=== PATIENT | female | born 1960 | race Caucasian/White ===

== ENCOUNTER 2018-11-18 18:49 | Inpatient (IN) | payer BC ==
[~2018-11-18] VITALS: Ht 170.2 cm; Wt 92.1 kg
[2018-11-18 19:07] VITALS: BP_SYST 152
--- NOTE | 2018-11-18 19:15 | NUR ---
Patient to ER bed 3 to gown for evaluation. Side rails up.
--- NOTE | 2018-11-18 19:20 | NUR ---
Pt C/O of headache x 1 day constant pain, blurred vision and photosensitivity. Pt states she took 81mg of ASA and hydrocodone with no relief. Pt denies any N/V, chest pain, SOB or any other symptoms at this time. Will continue to monitor.
[2018-11-18] MEDS: NORMAL SALINE 5 ML DISP.SYRIN IVF SCH ×2 (19:45→22:27)
--- NOTE | 2018-11-18 19:45 | NUR ---
ER Dr. Cleveland at bedside examining patient.
--- NOTE | 2018-11-18 19:54 | NUR ---
Patient transported to radiology via wheelchair, accompanied by rad staff.
--- NOTE | 2018-11-18 19:58 | NUR ---
Patient returned in stable condition
[2018-11-18] MEDS ORDERED: NACL 0.9% 1,000 ML IV ONE (20:01)
[2018-11-18 20:12] LABS: BASOPHILS % (AUTO) 0.4 % (0.0-2.0); EOSINOPHILS # (AUTO) 0.1 K/uL (0.0-0.4); EOSINOPHILS % (AUTO) 1.7 % (0.0-4.0); HEMATOCRIT 43.3 % (36-48); HEMOGLOBIN 14.4 g/dL (12.0-16.0); LYMPHOCYTES # (AUTO) 1.9 K/uL (1.0-5.5); LYMPHOCYTES % (AUTO) 35.7 % (20.5-51.5); MEAN CORPUSCULAR HEMOGLOBIN 31 pg (27-31); MEAN CORPUSCULAR HGB CONC 33 % (32-36); MEAN CORPUSCULAR VOLUME 92 fL (79.0-98.0); MONOCYTES # (AUTO) 0.5 K/uL (0.0-1.0); MONOCYTES % (AUTO) 9.7 % (1.7-9.3); NEUTROPHILS # (AUTO) 2.8 K/uL (1.8-7.7); NEUTROPHILS % (AUTO) 52.5 % (40.0-70.0); PLATELET COUNT (AUTO) 234 K/uL (130-430); RED BLOOD CELL COUNT(AUTO) 4.72 MIL/uL (4.2-6.2); RED CELL DISTRIBUTION WIDTH 13.8 % (9.0-15.0); WHITE BLOOD COUNT (AUTO) 5.4 K/uL (4.8-10.8)
[2018-11-18] MEDS ORDERED: ONDANSETRON HCL 4 MG/2 ML VIAL IVP ONE ×2 (20:15→23:15)
[2018-11-18] MEDS ORDERED: KETOROLAC TROMETHAMINE 15 MG VIAL IVP ONE (20:15)
--- NOTE | 2018-11-18 20:23 | NUR ---
Medicated per MD orders. IVF infusing with no s/s of infiltration at this time. Will cont to monitor
[2018-11-18 20:26] LABS: ANION GAP 9 (5-15); CALCIUM 10.1 mg/dL (8.4-11.0); CHLORIDE 105 mmol/L (98-107); CREATININE 0.82 mg/dL (0.55-1.30); GFR AFRICAN AMERICAN 93 mL/min (>90); GLUCOSE 105 mg/dL (70-99); POTASSIUM 3.9 mmol/L (3.5-5.1); SODIUM SERUM 140 mmol/L (136-145); UREA NITROGEN, BLOOD 18 mg/dL (8-21)
[2018-11-18 20:34] LABS: ALANINE AMINOTRANSFERASE 60 U/L (12-78); ALBUMIN 3.8 g/dL (3.4-4.8); ASPARTATE AMINOTRANSFERASE 26 U/L (10-37); TOTAL BILIRUBIN 0.3 mg/dL (0.0-1.0)
[2018-11-18 20:54] LABS: BILIRUBIN,URINE NEGATIVE (NEGATIVE); BLOOD, URINE 1+ (NEGATIVE); CLARITY/URINE CLEAR (CLEAR); COLOR,URINE YELLOW (YELLOW); GLUCOSE,URINE NEGATIVE (NEGATIVE); KETONES,URINE NEGATIVE (NEGATIVE); LEUKOCYTE ESTERASE ,URINE NEGATIVE (NEGATIVE); NITRITE, URINE NEGATIVE (NEGATIVE); PROTEIN URINE NEGATIVE (NEGATIVE); UROBILINOGEN,URINE 0.2 (0.2-1.0)
[2018-11-18 20:58] LABS: BACTERIA,URINE FEW /HPF (None Seen); RBC,URINE 0-3 /HPF (0-3); WBC,URINE 0-3 /HPF (0-3)
[2018-11-18] MEDS ORDERED: HYDROCHLOROTHIAZIDE 12.5 MG CAPSULE (HCTZ) PO ONE (21:45)
[2018-11-18] MEDS ORDERED: GABA-531 PO (22:32)
[2018-11-18] MEDS ORDERED: OMEP20CA10 PO (22:32)
[2018-11-18] MEDS ORDERED: HYDR-3608 PO (22:33)
--- NOTE | 2018-11-18 22:33 | NUR ---
Medication reconciliation completed with information provided by patient. Any prior medication reconciliation on file was reviewed and corrected.
--- NOTE | 2018-11-18 23:06 | NUR ---
Pt has been admitted under Dr. Jimenez. [facility] has been notified and states they will call back with a room number.
[2018-11-18] MEDS: MORPHINE 4 MG/ML INJ. SYRINGE IVP ONE ×2 (23:20→23:25)
--- NOTE | 2018-11-18 23:25 | NUR ---
Patient will be admitted to care of Dr. Jimenez. Admitted to telemetry unit. Will go to room 126B. Belongings list completed. Summary report printed. Report will be given at bedside.
[2018-11-18] MEDS ORDERED: LISINOPRIL 10 MG TABLET (PRINIVIL) PO ONE (23:30)
[2018-11-18] MEDS ORDERED: cloNIDine HCL 0.1 MG TABLET PO PRN (23:30)
--- NOTE | 2018-11-18 23:36 | NUR ---
Dr. Jimenez at [facility] examining patient
[2018-11-18] MEDS ORDERED: HYDROcodone/ACETAMIN 5-325 MG TAB (NORCO/ VICODIN) PO ONE (23:45)
--- NOTE | 2018-11-18 23:45 | NUR ---
Dr. Jimenez gave verbal order to give Clonidine NOW which has been administered.
--- NOTE | 2018-11-18 23:58 | NUR ---
Patient's blood pressure is 166/89 after medication administration.
[2018-11-19] VITALS (7 sets, daily range): BP systolic 97–151
--- NOTE | 2018-11-19 00:07 | NUR ---
ADMISSION: The patient, SHANI KONG, 58 y/o, F admitted by CONRADO JEFF MD with diagnosis of uncontrolled hypertension, was given written information regarding hospital policies, unit procedures and contact persons.
--- NOTE | 2018-11-19 00:16 | NUR ---
Transfer to Telemetry via ACLS protocol. Licensed nurse present. IV present no signs or symptoms of infiltration.
[2018-11-19] MEDS: TEMAZEPAM 15 MG CAPSULE PO PRN (01:39)
--- NOTE | 2018-11-19 01:40 | NUR ---
Patient is complaining of difficulty sleeping. Provided Restoril PRN per MD order.
--- NOTE | 2018-11-19 02:42 | NUR ---
Consultation Paged Reason for Consultation: HTN Was consult called: Y Person who was notified: Guillermina Consulting Physician: Hi Christiansen (Dr. Broussard information technology administrator) Fur Nailer Ordering Physician: Dr. Jimenez
--- NOTE | 2018-11-19 04:00 | NUR ---
Patient resting in bed, eyes closed. Breathing even and unlabored with visible chest rise and fall noted. No SOB, no acute distress, no signs of pain or facial grimacing noted. Bed is locked, in the lowest position, 2x side rails up, bed alarm is on. Call light is within reach.
[2018-11-19 05:11] LABS: BASOPHILS % (AUTO) 0.5 % (0.0-2.0); EOSINOPHILS # (AUTO) 0.1 K/uL (0.0-0.4); EOSINOPHILS % (AUTO) 2.5 % (0.0-4.0); HEMATOCRIT 39.1 % (36-48); HEMOGLOBIN 13.3 g/dL (12.0-16.0); LYMPHOCYTES # (AUTO) 1.8 K/uL (1.0-5.5); LYMPHOCYTES % (AUTO) 39.9 % (20.5-51.5); MEAN CORPUSCULAR HEMOGLOBIN 31 pg (27-31); MEAN CORPUSCULAR HGB CONC 34 % (32-36); MEAN CORPUSCULAR VOLUME 92 fL (79.0-98.0); MONOCYTES # (AUTO) 0.5 K/uL (0.0-1.0); MONOCYTES % (AUTO) 10.3 % (1.7-9.3); NEUTROPHILS # (AUTO) 2.1 K/uL (1.8-7.7); NEUTROPHILS % (AUTO) 46.8 % (40.0-70.0); PLATELET COUNT (AUTO) 212 K/uL (130-430); RED BLOOD CELL COUNT(AUTO) 4.24 MIL/uL (4.2-6.2); RED CELL DISTRIBUTION WIDTH 13.9 % (9.0-15.0); WHITE BLOOD COUNT (AUTO) 4.5 K/uL (4.8-10.8)
[2018-11-19] MEDS: NORMAL SALINE 5 ML DISP.SYRIN IVF SCH ×3 (06:00→20:50)
[2018-11-19 06:22] LABS: ALBUMIN 3.4 g/dL (3.4-4.8); CALCIUM 9.8 mg/dL (8.4-11.0); CREATININE 0.75 mg/dL (0.55-1.30); FREE T4 (FREE THYROXINE) 0.7 ng/dL (0.6-1.6); POTASSIUM 4.1 mmol/L (3.5-5.1); THYROID STIMULATING HORMONE 2.22 uIu/mL (0.34-4.82); TOTAL BILIRUBIN 0.4 mg/dL (0.0-1.0)
--- NOTE | 2018-11-19 06:47 | NUR ---
Closing Notes Patient is AAOx4, resting in bed. No SOB, no acute distress, no complaints of pain at this time. IV site intact, saline locked. Bed is locked, in the lowest position, 2x side rails up, bed alarm is on. Call light is within reach. Fall and safety precautions maintained. All needs have been met during this shift. Will endorse care to oncoming dayshift nurse.
--- NOTE | 2018-11-19 08:00 | NUR ---
ASSUMPTION OF CARE: RECEIVED PT A/A/OX4, DX: INADEQUATE PERFUSION, R/T HYPERTENSIVE URGENCY, VSS, WJ=253/72, NO S/S OF DISTRESS, IV SITE INTACT, PATENT, NO REDNESS OR SWELLING, C/O HEAD-ACHE 4/10 VIA NUMERIC SCALE, WILL MEDICATED WITH VICODIN 7.5MMG, PER ORDERED BY David, ORIENTED TO UNIT, CALL LIGHT PLACED WITHIN REACH, WILL CON'T TO MONITOR AND ASSESS.
[2018-11-19] MEDS ORDERED: LISINOPRIL 10 MG TABLET (PRINIVIL) PO SCH (09:00)
--- NOTE | 2018-11-19 09:00 | NUR ---
SLAB DEPILER OPERATOR: MORNING MEDS GIVEN, MEDICATED FOR PAIN, TOLERATED WELL, WILL CON'T WITH POC.
[2018-11-19] MEDS: HYDROcodone/ACETAMIN 7.5-325 MG TAB PO SCH (09:34)
[2018-11-19] MEDS: OMEPRAZOLE 20 MG CAPSULE.DR (PriLOSEC) PO SCH (09:34)
--- NOTE | 2018-11-19 12:00 | NUR ---
NURSES NOTES: PT HAS NO CHANGES, NOTED AT THIS TIME, WILL CON'T WITH POC.
[2018-11-19] MEDS: HYDROcodone/ACETAMIN 7.5-325 MG TAB PO PRN ×2 (15:14→20:49)
[2018-11-19] MEDS ORDERED: CYCLOBENZAPRINE HCL 10 MG TABLET (FLEXERIL) PO ONE (16:00)
--- NOTE | 2018-11-19 16:09 | NUR ---
RADIOLOGY: PT OFF UNIT VIA WHEELCHAIR IN STABLE CONDITION, FOR ORDERED US.
--- NOTE | 2018-11-19 16:16 | NUR ---
CONSULTATION PAGED CALLED DR PEDRAZA [phone] SPOKE TO KIRSTEN FOR NEUROLOGY CONSULT FOR JENNINGS
--- NOTE | 2018-11-19 16:20 | NUR ---
NURSES NOTES: PT RETURNED TO ROOM, ASSISTED BACK TO BED, CALL LIGHT PLACED WITHIN REACH, WILL CON'T TO MONITOR AND ASSESS.
--- NOTE | 2018-11-19 18:00 | NUR ---
ENDORSEMENT: PT RESTING IN BED, WHILE A/A/OX4, NO C/O PAIN AT THIS TIME, MEDS EFFECTIVE, CALL LIGHT WITHIN REACH, WILL CON'T TO MONITOR, ENDORSE TO NEXT SHIFT.
--- NOTE | 2018-11-19 19:40 | NUR ---
Initial Note Received patient awake, alert and oriented. No SOB noted. Denies any n/v at this time. Complain of mild headache at this time. Will medicate later. Saline lock. Skin intact and no peripheral edema noted. Ambulatory. Room air. Advised that we need a urine sample. Call light within reach. Bed alarm off per patient's request. Bed at lowest position at all times. Needs attended. Care and monitoring will be provided per protocol. Kept warm and comfortable.
[2018-11-19] MEDS: GABAPENTIN 300 MG CAPSULE PO SCH (20:46)
--- NOTE | 2018-11-19 20:46 | NUR ---
RN Note Due meds given along with pain medication for headache per patient's request. Tolerated well. Flexeril on hold for now as requested. Patient will take it later. Will continue to monitor.
[2018-11-19] MEDS ORDERED: GABAPENTIN 300 MG CAPSULE PO SCH (21:00)
[2018-11-19] MEDS: CYCLOBENZAPRINE HCL 10 MG TABLET (FLEXERIL) PO SCH (21:00)
--- NOTE | 2018-11-19 21:50 | NUR ---
UA obtained Patient ambulated to the bathroom and back in bed with steady gait. Obtained urine specimen and sent to the lab. No other complaints. Patient requested to have the Flexeril on hold for now. She will take it later. Needs attended.
[2018-11-19 21:51] LABS: BILIRUBIN,URINE NEGATIVE (NEGATIVE); CLARITY/URINE CLEAR (CLEAR); COLOR,URINE YELLOW (YELLOW); GLUCOSE,URINE NEGATIVE (NEGATIVE); KETONES,URINE NEGATIVE (NEGATIVE); LEUKOCYTE ESTERASE ,URINE NEGATIVE (NEGATIVE); NITRITE, URINE NEGATIVE (NEGATIVE); PH,URINE 5.5 (5.0-8.0); PROTEIN URINE NEGATIVE (NEGATIVE); UROBILINOGEN,URINE 0.2 (0.2-1.0)
[2018-11-19 22:03] LABS: BLOOD, URINE TRACE (NEGATIVE)
[2018-11-19 22:04] LABS: BACTERIA,URINE FEW /HPF (None Seen); RBC,URINE 0-3 /HPF (0-3); WBC,URINE 0-3 /HPF (0-3)
[2018-11-19 22:05] LABS: MUCUS,URINE None Seen /LPF (None Seen)
--- NOTE | 2018-11-19 23:30 | NUR ---
RN Note Patient sleeping at this time. No SOB or grimacing noted.
[2018-11-20 00:24] VITALS: BP_SYST 102
--- NOTE | 2018-11-20 02:00 | NUR ---
RN Note Asleep, moves occasionally. No distress noted.
--- NOTE | 2018-11-20 04:20 | NUR ---
RN Note Sleeping comfortably in bed. No acute distress noted.
[2018-11-20] MEDS: NORMAL SALINE 5 ML DISP.SYRIN IVF SCH ×3 (06:23→21:39)
--- NOTE | 2018-11-20 06:49 | NUR ---
End Note Afebrile. VS stable. No complain of SOB or n/v throughout the night. Medicated for pain once all night. Saline lock. Ambulates with steady gait. Morning hygiene done. Provided new gown and linens. No labs today. Able to sleep all night. SCDs refused. Care and monitoring provided per protocol. Call light within reach. Bed alarm off per patient's request. Bed at lowest position at all times. Needs attended. Kept warm and comfortable.
--- NOTE | 2018-11-20 07:30 | NUR ---
AM ROUNDS: PATIENT AWAKE DURING ROUNDS. HEADACHE BETTER THIS TIME. NO DISTRESS. VITAL SIGNS TAKEN .AFEBRILE. CONTINUE TO MONITOR.
[2018-11-20] MEDS: GABAPENTIN 300 MG CAPSULE PO SCH ×3 (08:27→21:39)
[2018-11-20] MEDS: CYCLOBENZAPRINE HCL 10 MG TABLET (FLEXERIL) PO SCH ×3 (08:27→21:39)
[2018-11-20] MEDS: OMEPRAZOLE 20 MG CAPSULE.DR (PriLOSEC) PO SCH (08:27)
[2018-11-20] MEDS: HYDROcodone/ACETAMIN 7.5-325 MG TAB PO SCH (08:28)
[2018-11-20 08:32] VITALS: BP_SYST 127
[2018-11-20] MEDS ORDERED: LOSARTAN POTASSIUM 25 MG TABLET PO ONE (10:15)
--- NOTE | 2018-11-20 10:20 | NUR ---
RN ROUNDS; NO DISTRESS. RESTING.
[2018-11-20 12:00] VITALS: BP_SYST 119
--- NOTE | 2018-11-20 13:05 | NUR ---
RN ROUNDS: PATIENT ATE LUNCH. NO PROBLEM.
[2018-11-20 13:15] LABS: BASOPHILS # (AUTO) 0.1 K/uL (0.0-0.2); BASOPHILS % (AUTO) 1.8 % (0.0-2.0); EOSINOPHILS # (AUTO) 0.1 K/uL (0.0-0.4); EOSINOPHILS % (AUTO) 3.1 % (0.0-4.0); HEMATOCRIT 44.5 % (36-48); HEMOGLOBIN 14.8 g/dL (12.0-16.0); LYMPHOCYTES # (AUTO) 1.3 K/uL (1.0-5.5); LYMPHOCYTES % (AUTO) 28.8 % (20.5-51.5); MEAN CORPUSCULAR HEMOGLOBIN 31 pg (27-31); MEAN CORPUSCULAR HGB CONC 33 % (32-36); MEAN CORPUSCULAR VOLUME 93 fL (79.0-98.0); MONOCYTES # (AUTO) 0.4 K/uL (0.0-1.0); MONOCYTES % (AUTO) 8.1 % (1.7-9.3); NEUTROPHILS # (AUTO) 2.7 K/uL (1.8-7.7); NEUTROPHILS % (AUTO) 58.2 % (40.0-70.0); PLATELET COUNT (AUTO) 225 K/uL (130-430); RED BLOOD CELL COUNT(AUTO) 4.79 MIL/uL (4.2-6.2); RED CELL DISTRIBUTION WIDTH 13.9 % (9.0-15.0); WHITE BLOOD COUNT (AUTO) 4.7 K/uL (4.8-10.8)
[2018-11-20 13:17] LABS: CALCIUM 10.2 mg/dL (8.4-11.0); CHLORIDE 106 mmol/L (98-107); CREATININE 0.59 mg/dL (0.55-1.30); GLUCOSE 88 mg/dL (70-99); POTASSIUM 4.1 mmol/L (3.5-5.1); SODIUM SERUM 134 mmol/L (136-145); UREA NITROGEN, BLOOD 15 mg/dL (8-21)
[2018-11-20 13:19] LABS: ANION GAP < 3 (5-15); GFR AFRICAN AMERICAN 136 mL/min (>90)
[2018-11-20 14:00] LABS: ERYTHROCYTE SEDIMENTATION RATE 2 MM/HR (0-20)
[2018-11-20 15:08] VITALS: BP_SYST 108
[2018-11-20] MEDS: HYDROcodone/ACETAMIN 7.5-325 MG TAB PO PRN ×2 (15:14→21:41)
--- NOTE | 2018-11-20 15:15 | NUR ---
PAIN MEDS: PATIENT C/O HEADACHE AND DUE PO PAIN MEDS GIVEN BY MORALES. NO PROBLEM.
--- NOTE | 2018-11-20 18:30 | NUR ---
CLOSING NOTES: NO ACUTE DISTRESS. CALL LIGHT WITH IN REACH. BED LOCKED AT LOWEST POSITION. CONDITION GUARDED.
--- NOTE | 2018-11-20 19:15 | NUR ---
OPENING NOTES REPORT GIVEN AT BEDSIDE WITH PATIENT RESTING IN BED. AAOX4 AND ABLE TO VERBALIZE NEEDS. PATIENT IS AMBULATORY WITH STEADY GAIT. COMPLAINTS OF HEADACHES AND DIZZINESS. INFORMED PATIENT TO USE CALL LIGHT FOR ASSISTANCE. IV ON THE RIGHT FOREARM 20G WITH NO S/S OF INFILTRATION. ORIENTED THE PATIENT TO THE ROOM. BED ALARM REFUSED AND EDUCATION PROVIDED. SAFETY PRECAUTIONS IN PLACE AND WILL MONITOR ON ROUNDS.
[2018-11-20 20:00] VITALS: BP_SYST 111
[2018-11-20] MEDS: TEMAZEPAM 15 MG CAPSULE PO PRN (21:48)
--- NOTE | 2018-11-20 22:01 | NUR ---
ATTEMPTED TO DO MRI QUESTIONAIRE. PATIENT REFUSED TO DO THE QUESTIONAIRE TONIGHT AND WOULD PREFER TO DO IT DURING THE DAY TIME. PATIENT AMBULATED TO THE BATHROOM WITH A STEADY GAIT. ICE PACKS GIVEN FOR HEADACHE. NO COMPLAINTS OF SOB. WILL CONTINUE MONITOR ON ROUNDS.
[2018-11-21 00:28] VITALS: BP_SYST 90
--- NOTE | 2018-11-21 00:37 | NUR ---
ASLEEP IN BED. NO FACIAL GRIMACING NOTED. NO RESPIRATORY DISTRESS. CALL LIGHT WITHIN REACH.
--- NOTE | 2018-11-21 03:37 | NUR ---
PATIENT IN BED ASLEEP. NO COMPLAINTS OF PAIN OR RESPIRATORY DISTRESS. CALL LIGHT WITHIN REACH. WILL CONTINUE TO MONITOR.
[2018-11-21] MEDS: NORMAL SALINE 5 ML DISP.SYRIN IVF SCH ×3 (06:18→20:19)
--- NOTE | 2018-11-21 06:52 | NUR ---
CLOSING NOTES PATIENT IN BED RESTING. IV CLEAN DRY AND INTACT. NO RESPIRATORY DISTRESS. BED LOCKED IN LOW POSITION. ALL NEEDS HAVE BEEN MET AND WILL ENDORSE CARE TO ONCOMING NURSE.
[2018-11-21 07:38] VITALS: BP_SYST 115
--- NOTE | 2018-11-21 07:39 | NUR ---
am rounds: Oriented x4. Frontal Headache is better at 3/10 compared to yesterday. Ambulates to the bathroom with steady gait, no dizziness. Call light within reach.
[2018-11-21] MEDS: OMEPRAZOLE 20 MG CAPSULE.DR (PriLOSEC) PO SCH (08:11)
[2018-11-21] MEDS: HYDROcodone/ACETAMIN 7.5-325 MG TAB PO SCH (08:12)
[2018-11-21] MEDS: CYCLOBENZAPRINE HCL 10 MG TABLET (FLEXERIL) PO SCH ×3 (08:12→20:19)
[2018-11-21] MEDS: GABAPENTIN 300 MG CAPSULE PO SCH ×3 (08:12→20:19)
[2018-11-21] MEDS: LOSARTAN POTASSIUM 25 MG TABLET PO SCH (08:12)
--- NOTE | 2018-11-21 11:00 | NUR ---
Rounds: Patient states " my head ache is better." No dizziness, no blurred vision when ambulating to the restroom.
[2018-11-21 11:09] VITALS: BP_SYST 123
--- NOTE | 2018-11-21 14:02 | NUR ---
md rounds: seen by dr. jones. for mri head in am.
[2018-11-21 15:55] VITALS: BP_SYST 105
--- NOTE | 2018-11-21 18:42 | NUR ---
end of shift: needs attended. no change in assessment.
[2018-11-21 19:00] VITALS: BP_SYST 133
--- NOTE | 2018-11-21 19:15 | NUR ---
change of shift.pt.presents quiescent affect;calm.visitors@bedside.no c/o pain,nausea.general;status stable.respiratory status stable@room air;unlabored.pt.capable to reposition self.call light/telephone w/in the reach of the pt.
[2018-11-21 20:00] VITALS: BP_SYST 133
--- NOTE | 2018-11-21 20:00 | NUR ---
pt.assessed.v/s assessed.values w/in normal limits.i have apprised the pt.that snacks/beverages are available w/in the shift. no requests posited @this hour.no c/o pain,nausea@this hour.i have applied an iv extension onto the extant iv access. i have presents a the indication;demonstration for the room telephone.general status stable.respiratory status stable@room air:o2=sat%=98%.call light/telephone w/in the reach of the pt.
[2018-11-21] MEDS: TEMAZEPAM 15 MG CAPSULE PO PRN (20:21)
[2018-11-21] MEDS: HYDROcodone/ACETAMIN 7.5-325 MG TAB PO PRN (20:22)
--- NOTE | 2018-11-21 20:30 | NUR ---
pt.had requested the administration of the 2100p medications@this hour.included;restoril;30mg po,norco;5/325mg po;pain;headache.i am to f/u re;pain medication efficacy per pain mgx protocol.pt.had ambulated to the restroom; i have assessed the gait;w/in normal limits.
--- NOTE | 2018-11-21 21:00 | NUR ---
pt.had requested medication;constipation.i reviewed the emar;med-list,no medications are ordered;constipation.i apprised the pt. that i am to page the attending md;.
[2018-11-21] MEDS ORDERED: DOCUSATE SODIUM 250 MG CAPSULE PO ONE (21:15)
[2018-11-21] MEDS ORDERED: BISACODYL 5 MG TABLET.DR (DULCOLAX) PO ONE ×2 (21:15→21:45)
--- NOTE | 2018-11-21 21:45 | NUR ---
had returned the page.i apprised of the pt's requests;medications;constipation.dr jones had ordered colace;250mg po/dulcolax;20mg;clarified to 15mg po x1.i had returned to the pt's room:pt.is asleep.will attempt to present medications w/in the shift.
--- NOTE | 2018-11-21 22:00 | NUR ---
pt.assessed.pt.presents quiescent affect;calm,somnolent.general status stable.respiratory status stable;unlabored. pt.capable to reposition self.call light/telephone w/in the reach of the pt.
--- NOTE | 2018-11-22 | NUR ---
pt.assessed.v/s assessed;values w/in normal limits.pt.presents quiescent affect;calm,somnolent.no c/o pain,nausea@this hour. no requests@this hour.general status stable.respiratory status stable;unlabored.pt.capable to reposition self.call light/telephone w/in the reach of the pt.
[2018-11-22 00:37] VITALS: BP_SYST 101
--- NOTE | 2018-11-22 02:00 | NUR ---
ptr.assessed.pt.presents quiescent affect;calm,somnolent.general status stable.respiratory status stable;unlabored. pt.capable to reposition self.call light/telephone w/in the reach of the pt.
--- NOTE | 2018-11-22 04:00 | NUR ---
pt.assessed.pt.presents quiescent affect;calm,somnolent.general status stable.respiratory status stable;unlabored.call light. telephone w/in the reach of the pt.
[2018-11-22] MEDS: NORMAL SALINE 5 ML DISP.SYRIN IVF SCH ×2 (06:15→16:08)
--- NOTE | 2018-11-22 06:50 | NUR ---
pt.assessed.pt.presents quiescent affect;calm,awake.no c/o pain,nausea.i have administered dulcolax;15mg po;x1 dose.constipation. no c/o pain,nausea.general status stable.respiratory status stable;unlabored.pt.capable to rspion self.call light/telephone w/in the reach of the pt. Addendum: 11/22/18 at 0655 by Lewis Houser RN pt.to submit to mri;brain;this am;11/22/18.questionaire;has been attended to/pt's signing witnessed per anil day-shift;11/21/18.
[2018-11-22 08:00] VITALS: BP_SYST 128
--- NOTE | 2018-11-22 08:00 | NUR ---
initial notes rec patient awake alert with hob slightly elevated. resp easy and unlabored. no sob noted. bed to the lowest position and side rails up and locked. call light within reached and knows when to call for assistance. will continue to monitor patient.
[2018-11-22] MEDS ORDERED: DOCUSATE SODIUM 250 MG CAPSULE PO SCH (09:00)
[2018-11-22] MEDS: HYDROcodone/ACETAMIN 7.5-325 MG TAB PO SCH (09:15)
[2018-11-22] MEDS: CYCLOBENZAPRINE HCL 10 MG TABLET (FLEXERIL) PO SCH ×2 (09:29→16:07)
[2018-11-22] MEDS: GABAPENTIN 300 MG CAPSULE PO SCH ×2 (09:30→16:08)
[2018-11-22] MEDS: LOSARTAN POTASSIUM 25 MG TABLET PO SCH (09:30)
[2018-11-22] MEDS ORDERED: PANTOPRAZOLE SODIUM 40 MG TAB PO SCH (10:00)
--- NOTE | 2018-11-22 10:00 | NUR ---
rounds due meds given as ordered. no sob noted.
--- NOTE | 2018-11-22 12:00 | NUR ---
rounds ambulates to the br and room and [facility]. no sob noted. call light within reached.
[2018-11-22 12:39] VITALS: BP_SYST 94
--- NOTE | 2018-11-22 15:00 | NUR ---
rounds to mri via wheelchair. no sob noted.
[2018-11-22 16:41] VITALS: BP_SYST 103
[2018-11-22] MEDS ORDERED: CYCL-10 PO (18:26)
[2018-11-22] MEDS ORDERED: LOSA25TA3 PO (18:27)
[2018-11-22] MEDS ORDERED: TEMA30CA5 PO (18:29)
[2018-11-22 18:52] VITALS: BP_SYST 103
--- NOTE | 2018-11-22 19:15 | NUR ---
closingntes dicscharge home after seen by dr jones. discussed meds with patient, appt with pmd. id band was removed. refused wheelchair and ambulated with . stable. needs attended.
[2018-11-23 09:11] LABS: WEST NILE VIRUS, IgG, SERUM Negative (Negative)
== END 2018-11-22 19:15 | disposition home or self-care (01) | DRG 552 ==
LOC: SED 18:49 → STU 23:02 → SMU 11-19 15:53
PROVIDERS: ADMIT Internal Medicine; ATTEND Internal Medicine
DX: M47.892 Other spondylosis, cervical region (principal); M54.9 Dorsalgia, unspecified; I16.0 Hypertensive urgency; I10 Essential (primary) hypertension; K21.9 Gastro-esophageal reflux disease without esophagitis; E66.9 Obesity, unspecified; G89.4 Chronic pain syndrome; M79.7 Fibromyalgia; G62.9 Polyneuropathy, unspecified; I45.10 Unspecified right bundle-branch block; Z82.49 Family history of ischemic heart disease and other diseases of the circulatory system; Z88.8 Allergy status to other drugs, medicaments and biological substances; Z91.018 Allergy to other foods; Z79.899 Other long term (current) drug therapy; Z68.31 Body mass index [BMI] 31.0-31.9, adult
CPT/HCPCS: 36415; 70450-TC; 70551; 71045; 72050-TC; 80048; 80053; 80061; 81000-TC; 83735-TC; 83880; 84439; 84443-TC; 84484; 85025; 85651-TC; 86788; 86789; 93005; 93306; 96361; 96374; 96375; 99285; G0378; J1885; J2270; J2405

== ENCOUNTER 2020-01-26 09:27 | Outpatient (CLI) | payer BC ==
[~2020-01-26 09:27] MED LIST: CYCL-10 PO; GABA-531 PO; HYDR-3609 PO; LOSA25TA3 PO; OMEP20CA15 PO; TEMA30CA5 PO
== END 2020-01-26 19:56 | disposition home or self-care (01) ==
LOC: SNM 09:27
DX: E21.3 Hyperparathyroidism, unspecified (principal)
CPT/HCPCS: 78070; A9500